=== PATIENT | male | born 1960 | race Caucasian/White ===

== ENCOUNTER 2017-10-04 16:08 | Emergency (ER) | payer OTHER ==
[~2017-10-04] VITALS: Ht 175.3 cm; Wt 79.5 kg
[2017-10-04] MEDS ORDERED: VALIUM5 MG PO (18:30)
[2017-10-04] MEDS ORDERED: PREDNISONE20 MG PO (18:30)
[2017-10-04] MEDS ORDERED: ULTRACET1 TABLET PO (18:30)
[2017-10-04] MEDS ORDERED: LIDODERM 5% P1 PATCH TD (18:30)
[2017-10-04] MEDS ORDERED: INDOCIN50 MG PO (18:30)
[2017-10-04 19:02] VITALS: BP 118/76
[2017-10-04] MEDS ORDERED: LEVOTHYROXINE150 MCG PO (19:04)
== END 2017-10-04 19:04 | disposition home or self-care (01) ==
LOC: EME 16:08
DX: M54.42 Lumbago with sciatica, left side (principal); M51.37 Other intervertebral disc degeneration, lumbosacral region; E03.9 Hypothyroidism, unspecified
CPT/HCPCS: 99281; 99283; J3010